=== PATIENT | female | born 1950 | race Caucasian/White ===

== ENCOUNTER → 2017-03-26 | Outpatient (CLI) | payer MEDICARE, MEDICAID ==
[~2017-03-26] MED LIST: BROMFED DM COU118 ML PO; LEVOTHYROXIN0.137 M1 PO; LIVALO2 MG PO; LORATADINE 10MG10 M1 PO; LORAZEPAM1 MG/TABLE PO; NAPROSYN 500MG500 MG PO; PAXIL20 M1 PO
[2017-03-26 13:37] LABS: HEMOGLOBIN 13.6 g/dL (12.2-16.2); LYMPH # 2.6 K/mm3 (0.7-4.5); LYMPH % 38.6 % (10-50.0)
[2017-03-26 14:05] LABS: BUN 16 mg/dL (7-18)
[2017-03-26 14:12] LABS: GFR (ESTIMATED) 71 ML/MIN (59-)
== END ==
LOC: LAB 12:57
PROVIDERS: Otolaryngology
DX: D38.5 Neoplasm of uncertain behavior of other respiratory organs (principal); Z01.810 Encounter for preprocedural cardiovascular examination; Z01.811 Encounter for preprocedural respiratory examination; Z01.812 Encounter for preprocedural laboratory examination